=== PATIENT | male | born 1955 | race Asian ===

== ENCOUNTER 2016-11-30 12:34 | Emergency (ER) | payer OTHER ==
[~2016-11-30] VITALS: Ht 180.3 cm; Wt 72.6 kg
[2016-11-30 12:45] VITALS: BP 130/70
[2016-11-30] MEDS ORDERED: Morphine Sulfate 4mg/ml Inj IVP ONE (12:45)
[2016-11-30 13:11] LABS: MEAN CORPUSCULAR HGB CONC 31.9 G/DL (32.0-36.0); MEAN CORPUSCULAR VOLUME 100 FL (80-99); MEAN PLATELET VOLUME 7.3 FL (6.5-10.1); PLATELET COUNT 176 K/UL (150-450); RED BLOOD COUNT 3.99 M/UL (4.70-6.10); RED CELL DISTRIBUTION WIDTH 12.1 % (11.6-14.8); WHITE BLOOD COUNT 10.9 K/UL (4.8-10.8)
[2016-11-30 13:21] LABS: TROPONIN I < 0.30 ng/mL (<=0.30)
[2016-11-30 13:24] LABS: ALANINE AMINOTRANSFERASE 16 U/L (3-41); ALBUMIN/GLOBULIN RATIO 1.6 (1.0-2.7); ANION GAP 16 (5-15); ASPARTATE AMINO TRANSFERASE 17 U/L (5-40); CARBON DIOXIDE 25 mEQ/L (20-30); CHLORIDE 96 mEQ/L (98-107); GLOMERULAR FILTRATION RATE > 60 mL/min (>60); HEMOLYSIS 5; LIPASE 22 U/L (< 60); POTASSIUM 3.7 mEQ/L (3.4-4.9); SODIUM 137 mEQ/L (135-145); TOTAL PROTEIN 6.7 g/dL (6.6-8.7)
[2016-11-30 14:09] VITALS: BP 123/71
[2016-11-30 14:15] LABS: BAND NEUTROPHILS % (MANUAL) 4 % (0-8); BASOPHILS % (MANUAL) 0 % (0-2); EOSINOPHILS % (MANUAL) 0 % (0-3); LYMPHOCYTES % (MANUAL) 9 % (20-45); MACROCYTES 1+; NEUTROPHILS % (MANUAL) 84 % (45-75); PLATELET ESTIMATE ADEQUATE; PLATELET MORPHOLOGY NORMAL; TOTAL CELLS COUNTED 100
[2016-11-30 16:05] VITALS: BP 121/73
[2016-11-30] MEDS ORDERED: IBUPROFEN600 MG ORAL (16:06)
[2016-11-30] MEDS ORDERED: TRAMADOL HCL50 MG ORAL (16:06)
--- NOTE | 2016-11-30 16:12 | Emergency Room Report ---
History of Present Illness General Chief Complaint: Abdominal Pain Source: Patient, EMS Present Illness HPI The patient presents with severe abdominal pain. Starting to get somewhat better. For 2 hours this morning it was 8/10 and constant. It is epigastric and radiating down from his right lower quadrant and inguinal area. He is known to have a right inguinal hernia. His doctors state the he needs to have surgery at some point. He denies any vomiting. He is passing gas. This never been as severe in the past. No fevers, chills, dysuria, rashes, URI sy, anxiety. Allergies: Coded Allergies: No Known Allergies (Unverified , 11/30/16) Patient History Past Medical History: see triage record Social History: Denies: alcohol use, smoking Social History Narrative at home Reviewed Nursing Documentation: PMH: Agreed, PSxH: Agreed Nursing Documentation-PMH Past Medical History: No Stated History Review of Systems All Other Systems: negative except mentioned in HPI Physical Exam Vital Signs Date Time Temp Pulse Resp B/P Pulse Ox O2 Delivery O2 Flow Rate FiO2 11/30/16 12:30 98.2 84 18 128/88 98 Room Air Sp02 EP Interpretation: reviewed, normal General Appearance: well appearing, GCS 15, mild distress Head: normocephalic Eyes: bilateral eye PERRL, bilateral eye normal inspection ENT: moist mucus membranes Neck: supple Respiratory: lungs clear, normal breath sounds Cardiovascular #1: regular rate, rhythm Cardiovascular #2: 2+ radial (R) Gastrointestinal: soft, non-distended, no rebound, tenderness - diffuse but more RLQ/hernia, hernia - R inguinal with tenderness Genitourinary: normal inspection, other - hernia Musculoskeletal: back normal, gait/station normal, normal range of motion Neurologic: alert, oriented x3 - grossly normal Skin: normal inspection, warm/dry Medical Decision Making Diagnostic Impression: Primary Impression: Abdominal pain Qualified Codes: R10.9 - Unspecified abdominal pain Additional Impression: R inguinal hernia ER Course Patient presents with generalized abdominal pain with R inguinal hernia. Ddx: perforation, diverticulitis, UTI, incarceration/strangulation, gastroenteritis, pancreatitis amongst others. Fairly significant pain. Emergent evaluation with labs and CT scan. Will also hydrate and give analgesia. Exam most suggestive for incarceration of hernia. Labs with leukocytosis. CT fairly unremarkable. Consideration of admission with leukocytosis. Patient completely pain free. Discussion of observation at home. Most likely hernia self reduced with analgesia. Stable for outpatient observation and treatment. Laboratory Tests Test 11/30/16 12:15 11/30/16 15:30 White Blood Count 10.9 K/UL (4.8-10.8) H Red Blood Count 3.99 M/UL (4.70-6.10) L Hemoglobin 12.8 G/DL (14.2-18.0) L Hematocrit 40.0 % (42.0-52.0) L Mean Corpuscular Volume 100 FL (80-99) H Mean Corpuscular Hemoglobin 32.0 PG (27.0-31.0) H Mean Corpuscular Hemoglobin Concent 31.9 G/DL (32.0-36.0) L Red Cell Distribution Width 12.1 % (11.6-14.8) Platelet Count 176 K/UL (150-450) Mean Platelet Volume 7.3 FL (6.5-10.1) Neutrophils (%) (Auto) % (45.0-75.0) Lymphocytes (%) (Auto) % (20.0-45.0) Monocytes (%) (Auto) % (1.0-10.0) Eosinophils (%) (Auto) % (0.0-3.0) Basophils (%) (Auto) % (0.0-2.0) Differential Total Cells Counted 100 Neutrophils % (Manual) 84 % (45-75) H Lymphocytes % (Manual) 9 % (20-45) L Monocytes % (Manual) 3 % (1-10) Eosinophils % (Manual) 0 % (0-3) Basophils % (Manual) 0 % (0-2) Band Neutrophils 4 % (0-8) Platelet Estimate Adequate Platelet Morphology Normal Macrocytosis 1+ Prothrombin Time 10.0 SEC (9.30-11.50) Prothrombin Time INR 1.0 (0.9-1.1) PTT 24 SEC (23-33) Sodium Level 137 mEQ/L (135-145) Potassium Level 3.7 mEQ/L (3.4-4.9) Chloride Level 96 mEQ/L (98-107) L Carbon Dioxide Level 25 mEQ/L (20-30) Anion Gap 16 (5-15) H Blood Urea Nitrogen 14 mg/dL (7-23) Creatinine 1.0 mg/dL (0.7-1.2) Estimate Glomerular Filtration Rate > 60 mL/min (>60) Glucose Level 182 mg/dL (74-106) H Calcium Level 9.0 mg/dL (8.6-10.2) Total Bilirubin 0.5 mg/dL (0.0-1.2) Aspartate Amino Transferase (AST) 17 U/L (5-40) Alanine Aminotransferase (ALT) 16 U/L (3-41) Alkaline Phosphatase 40 U/L (40-129) Troponin I < 0.30 ng/mL (<=0.30) Total Protein 6.7 g/dL (6.6-8.7) Albumin 4.2 g/dL (3.5-5.2) Globulin 2.5 g/dL Albumin/Globulin Ratio 1.6 (1.0-2.7) Lipase 22 U/L (< 60) Urine Color Pending Urine Appearance Pending Urine pH Pending Urine Specific [place] Pending Urine Protein Pending Urine Glucose (UA) Pending Urine Ketones Pending Urine Occult Blood Pending Urine Nitrite Pending Urine Bilirubin Pending Urine Urobilinogen Pending Urine Leukocyte Esterase Pending EKG Diagnostic Results Rate: normal Rhythm: NSR ST Segments: no acute changes Rhythm Strip Diag. Results EP Interpretation: yes Rhythm: NSR, no PVC's, no ectopy CT/MRI/US Diagnostic Results CT/MRI/US Diagnostic Results : Imaging Test Ordered: abd pelvis Impression hernia canal, no intestine in at time of CT, otherwise no surgical pathology Last Vital Signs Date Time Temp Pulse Resp B/P Pulse Ox O2 Delivery O2 Flow Rate FiO2 11/30/16 16:05 98.4 83 18 121/73 99 Room Air Status: improved Disposition: HOME, SELF-CARE Condition: Improved Scripts Tramadol Hcl* (ULTRAM*) 50 Mg Tablet 50 MG ORAL Q6H Y for For Pain, #10 TAB 0 Refills Prov: John Mcbride M.D. 11/30/16 Ibuprofen* (MOTRIN*) 600 Mg Tablet 600 MG ORAL Q6H Y for For Pain, #16 TAB Prov: John Mcbride M.D. 11/30/16 Referrals: [facility], [place],REFERRING (PCP) Patient Instructions: Abdominal Pain, Adult, Inguinal Hernia, Adult Additional Instructions: Return if the pain is severe. You are being observed at home. See your doctor in the next 2-3 days. OK to take tylenol. John Mcbride M.D. Nov 30, 2016 16:12
[2016-11-30 16:20] LABS: APPEARANCE,URINE CLEAR; KETONES,URINE NEGATIVE (NEGATIVE); LEUKOCYTE ESTERASE ,URINE NEGATIVE (NEGATIVE); NITRITE,URINE NEGATIVE (NEGATIVE); PH,URINE 7 (4.5-8.0); PROTEIN,URINE NEGATIVE (NEGATIVE); UROBILINOGEN,URINE NORMAL MG/DL (0.0-1.0)
--- NOTE | 2016-12-02 15:19 | Cardiology Report ---
APPROVED REPORT EKG Measurement Heart [id number] Normal sinus rhythm Normal ECG
--- NOTE | 2016-12-06 10:30 | Diagnostic Imaging Report ---
Indication: Abdominal pain Technique: Continuous helical transaxial imaging of the abdomen and pelvis was obtained from the lung bases to the pubic symphysis during intravenous contrast administration. Coronal 2-D reformats were also obtained. Study obtained in a Siemens sensation [address] Total Dose length Product (DLP): [address] Dose Index Volume (CTDIvol): 17 mGy Comparison: None Findings: Minimal left basilar reticulation noted within the lung parenchyma as well as adjacent pleural thickening and calcification. Findings likely on the basis of prior asbestos exposure. Small hiatal hernia is noted. Hypodensities within both kidneys consistent with cysts. One of these foci in the left kidney measures 1.5 CM and contains posterior mural calcification and/or enhancement. There is no hydronephrosis. Gallbladder is unremarkable. Within the uncinate process of the pancreas there is a 1.3 cm cyst. Consider further evaluation with MRI (pancreas protocol) normal retrocecal appendix demonstrated. Urinary bladder is unremarkable. There is small umbilical hernia containing fat. Mild prostate hypertrophy noted. There is a right level hernia with soft tissue attenuation. Please correlate clinically. No bowel demonstrated within the hernia. No free air, free fluid or evidence of bowel obstruction. Impression: No acute findings appreciated. 1.3 cm cyst noted within the pancreas. This requires further evaluation and could be a IPMN. This was not mentioned in the preliminary reading. Discrepancy with the preliminary reading by [facility] is noted. Final results conveyed to the emergency department and Dr. Mcbride at 9:59 am, 12/01/16. Multiple bilateral renal hypodensities likely cysts. Consider sound and/or MR evaluation of the left renal lesion described above. Atherosclerotic vascular disease Asbestos-related pleural disease. Small right inguinal hernia. Please correlate clinically. Tiny umbilical hernia containing fat The CT scanner at [facility] is accredited by the [employer] and the scans are performed using protocols designed to limit radiation exposure to as low as reasonably achievable to attain images of sufficient resolution adequate for diagnostic evaluation.
== END 2016-11-30 16:16 | disposition home or self-care (01) ==
LOC: EDBD 12:34 → EMR 14:34
DX: K40.90 Unilateral inguinal hernia, without obstruction or gangrene, not specified as recurrent (principal)
CPT/HCPCS: 36415; 74177; 80053; 81003; 82962; 83690; 84484; 85007; 85025; 85610; 85730; 86850; 86900; 86901; 93005; 96361; 96374; 96375; 99284; J2270; J2405; Q9967